=== PATIENT | female | born 1945 | race Caucasian/White ===

== ENCOUNTER 2018-06-09 08:27 | Inpatient (IN) | payer MEDICARE, BC ==
[~2018-06-09 08:27] MED LIST: EPINEPHrine 0.1 MG/ML SYG; NA BICARBONATE 8.4% 50 ML SYG
[2018-06-09] MEDS: SOD CHLORIDE 0.9% 1,000 ML IV (08:30)
[2018-06-09] MEDS ORDERED: FENTAnyl 50 MCG/ML VIAL ×2 (08:34→08:52)
[2018-06-09 08:40] LABS: ADD MAN DIFF? NO
[2018-06-09 08:41] LABS: WHITE BLOOD COUNT 16.7 10^3/ul (4.8-10.8)
[2018-06-09 08:41] LABS: BASOPHIL # 0.1 10^3/ul (0.0-0.1); BASOPHILS % 0.4 % (0.0-2.0); EOSINOPHILS # 0.3 10^3/ul (0.0-0.5); EOSINOPHILS % 1.7 % (0.0-7.0); HEMATOCRIT 38.3 % (37.0-47.0); HEMOGLOBIN 12.1 g/dl (12.0-16.0); LYMPHOCYTES # 3.3 10^3/ul (0.8-2.9); LYMPHOCYTES % 19.6 % (15.0-51.0); MEAN CORPUSCULAR HEMOGLOBIN 29.8 pg (29.0-33.0); MEAN CORPUSCULAR HGB CONC 31.6 g/dl (32.0-37.0); MEAN CORPUSCULAR VOLUME 94.3 fl (82.0-101.0); MEAN PLATELET VOLUME 8.4 fl (7.4-10.4); MONOCYTE # 0.9 10^3/ul (0.3-0.9); MONOCYTES % 5.3 % (0.0-11.0); NEUTROPHILS % 71.9 % (39.0-77.0); PLATELET COUNT 229 10^3/UL (140-415); RED BLOOD COUNT 4.06 10^6/ul (4.20-5.40); RED CELL DISTRIBUTION WIDTH 14.8 % (11.5-14.5)
[2018-06-09] MEDS ORDERED: NITROGLYCERIN (IC) 100 MCG/ML INJ (08:52)
[2018-06-09 08:57] LABS: ALANINE AMINOTRANSFERASE 69 IU/L (13-69); ALBUMIN 3.3 g/dl (3.3-4.9); ALKALINE PHOSPHATASE 65 IU/L (42-121); ANION GAP 11 (5-13); ASPARTATE AMINO TRANSFERASE 122 IU/L (15-46); BILIRUBIN,INDIRECT 0.5 mg/dl (0-1.1); BILIRUBIN,TOTAL 0.5 mg/dl (0.2-1.3); BLOOD UREA NITROGEN 22 mg/dl (7-20); CALCIUM 9.4 mg/dl (8.4-10.2); CARBON DIOXIDE 17 mmol/L (21-31); CHLORIDE 107 mmol/L (97-110); CREATINE KINASE 277 IU/L (23-200); CREATININE 0.87 mg/dl (0.44-1.00); GLUCOSE 148 mg/dl (70-220); SODIUM 135 mmol/L (135-144); TOTAL PROTEIN 6.3 g/dl (6.1-8.1)
[2018-06-09 09:10] LABS: B-TYPE NATRIURETIC PEPTIDE 1150 PG/ML (0-125); CK INDEX 6.9
[2018-06-09 09:20] LABS: TROPONIN-I 0.991 ng/ml (0.000-0.120)
[2018-06-09] MEDS ORDERED: ONDANSETRON 4 MG INJ (09:37)
[2018-06-09 09:45] LABS: INR 0.98; PROTIME 13.1 Sec (11.9-14.9)
[2018-06-09] MEDS ORDERED: FUROSEMIDE 40 MG INJ (09:48)
[2018-06-09 09:50] LABS: PARTIAL THROMBOPLASTIN TIME 123.7 Sec (23.0-35.0)
[2018-06-09] MEDS ORDERED: CANGRELOR TETRASODIUM/ NS 250 50 MG ×2 (10:04→11:18)
[2018-06-09] MEDS ORDERED: BIVALIRUDIN 250MG /NS 50 ML 50 ML IVPB (10:32)
[2018-06-09] MEDS ORDERED: EPTIFIBATIDE 20 ML (10:33)
[2018-06-09] MEDS ORDERED: LIDOCAINE 1% (MDV) 20 ML INJ (10:33)
[2018-06-09] MEDS ORDERED: NORepinephrine 8MG/250 ML (PMX 250 ML (10:33)
[2018-06-09] MEDS ORDERED: HEPARIN 1000 UNITS/NS (A-LINE) 0 ML (10:33)
[2018-06-09] MEDS ORDERED: EPTIFIBATIDE 100 ML IV (10:33)
[2018-06-09] MEDS ORDERED: HEPARIN 1000 UNITS/ML 10 ML INJ (10:35)
[2018-06-09 10:36] LABS: AADO2 Arterial 602.3 mmHg (7.0-24.0); Allen Test ACCEPTAB; Arterial Base Excess -11.9 mmol/L (-3.0-3); Arterial Blood Gas Oxygen Sat 87.4 mmHG (95.0-100.0); Arterial COHb 0.3 % (0.0-3.0); Arterial Fraction of Oxyhgb 86.9 % (93.0-99.0); Arterial HCO3 16.3 mmol/L (22.0-26.0); Arterial MetHb 0.3 % (0.0-1.5); Arterial pCO2 45.5 mmhg (35-45); MODE MASK - NRB; Site A-Line
[2018-06-09] MEDS ORDERED: LORAZEPAM 2 MG INJ (10:58)
[2018-06-09] MEDS ORDERED: SOD CHLORIDE 0.9% 1,000 ML IV (11:03)
[2018-06-09] MEDS ORDERED: ZOLPIDEM 5 MG TAB PO (11:30)
[2018-06-09] MEDS ORDERED: DIAZEPAM 2 MG TAB PO (11:30)
[2018-06-09] MEDS ORDERED: FUROSEMIDE 20 MG INJ (11:34)
[2018-06-09] MEDS ORDERED: PROPOFOL 100 ML (11:48)
[2018-06-09] MEDS ORDERED: MIDAZOLAM 1 MG/ML 2 ML INJ (11:52)
[2018-06-09] MEDS ORDERED: PROPOFOL 100 ML IV ×2 (12:00→12:30)
[2018-06-09] MEDS: MIDAZOLAM (DRIP) 50 mg/50 mL 50 ML IV (12:17)
[2018-06-09] MEDS: FENTAnyl (DRIP) 1000 mcg/100mL 100 ML IV (12:17)
[2018-06-09] MEDS: FUROSEMIDE 20 MG INJ IV (12:19)
[2018-06-09 13:06] LABS: AADO2 Arterial 556.3 mmHg (7.0-24.0); Arterial Base Excess -8.3 mmol/L (-3.0-3); Arterial Blood Gas Oxygen Sat 97.1 mmHG (95.0-100.0); Arterial COHb 0.3 % (0.0-3.0); Arterial Fraction of Oxyhgb 96.7 % (93.0-99.0); Arterial HCO3 18.9 mmol/L (22.0-26.0); Arterial MetHb 0.1 % (0.0-1.5); Arterial pCO2 44.9 mmhg (35-45); MODE VENT - AC; Site A-Line
[2018-06-09] MEDS: PROPOFOL 100 ML IV (13:34)
[2018-06-09] MEDS: TICAGRELOR 90 MG TABLET PO (13:34)
[2018-06-09 13:51] LABS: ADD UMIC YES; UR ASCORBIC ACID NEGATIVE (NEGATIVE); UR BACTERIA FEW /HPF (NONE SEEN); UR BILIRUBIN (Dip) NEGATIVE (NEGATIVE); UR BLOOD (Dip) 3+ mg/dL (NEGATIVE); UR CLARITY SLIGHTLY CLOUDY (CLEAR); UR COLOR YELLOW (YELLOW); UR GLUCOSE (Dip) 1+ mg/dL (NEGATIVE); UR KETONES (Dip) NEGATIVE (NEGATIVE); UR LEUKOCYTE ESTERASE (Dip) NEGATIVE Leu/ul (NEGATIVE); UR NITRITE (Dip) NEGATIVE (NEGATIVE); UR RBC 2 /HPF (0-5); UR SPECIFIC GRAVITY (Dip) 1.031 (1.003-1.030); UR TOTAL PROTEIN (Dip) NEGATIVE (NEGATIVE); UR UROBILINOGEN (Dip) NEGATIVE (NEGATIVE); UR WBC 4 /HPF (0-5)
[2018-06-09] MEDS ORDERED: NORepinephrine 8MG/250 ML (PMX 250 ML IV (14:00)
[2018-06-09] MEDS ORDERED: METOPROLOL 5 MG INJ IV (15:00)
[2018-06-09] MEDS ORDERED: MAGNESIUM SULFATE 2 GM/50 ML 50 ML IVPB (15:00)
[2018-06-09] MEDS ORDERED: AMIODARONE 150MG/D5W BOLUS 0 ML (15:12)
[2018-06-09 15:30] LABS: ALANINE AMINOTRANSFERASE 263 IU/L (13-69); ALBUMIN 3.4 g/dl (3.3-4.9); ALBUMIN/GLOBULIN RATIO 1.03; ALKALINE PHOSPHATASE 86 IU/L (42-121); ANION GAP 8 (5-13); BILIRUBIN,INDIRECT 0.6 mg/dl (0-1.1); BILIRUBIN,TOTAL 0.6 mg/dl (0.2-1.3); BLOOD UREA NITROGEN 25 mg/dl (7-20); CALCIUM 8.7 mg/dl (8.4-10.2); CARBON DIOXIDE 22 mmol/L (21-31); CHLORIDE 104 mmol/L (97-110); CREATININE 1.01 mg/dl (0.44-1.00); GLUCOSE 159 mg/dl (70-220); MAGNESIUM 1.9 mg/dl (1.7-2.5); POTASSIUM 4.5 mmol/L (3.5-5.1); SODIUM 134 mmol/L (135-144); TOTAL PROTEIN 6.7 g/dl (6.1-8.1)
[2018-06-09] MEDS ORDERED: AMIODARONE 900 MG in DEXTROSE 5% 482 ML IV (15:30)
[2018-06-09] MEDS ORDERED: EPINEPHrine 4 MG in SOD CHLORIDE 0.9% 246 ML IV (15:30)
[2018-06-09 15:40] LABS: ASPARTATE AMINO TRANSFERASE 1082 IU/L (15-46)
[2018-06-09 16:46] LABS: CK-MB > 800.00 ng/ml (0.0-2.4)
[2018-06-09 16:52] LABS: CK INDEX 6.4; CREATINE KINASE 12581 IU/L (23-200)
[2018-06-09] MEDS ORDERED: TICAGRELOR 90 MG TABLET PO (21:00)
[2018-06-09] MEDS ORDERED: ATORVASTATIN 80 MG TAB PO (21:00)
[2018-06-10] MEDS ORDERED: ASPIRIN (EC) 81 MG TAB PO (09:00)
== END 2018-06-09 15:45 | disposition expired | DRG 246 ==
LOC: E/R 08:27 → CCL 08:35 → SDS 08:35 → ICU 10:58 → CCL 19:35 → ICU 10:55
PROC: 027034Z Dilation of Coronary Artery, One Artery with Drug-eluting Intraluminal Device, Percutaneous Approach (ICD-10-PCS; principal; 2018-06-09 08:00)
PROC: 4A023N7 Measurement of Cardiac Sampling and Pressure, Left Heart, Percutaneous Approach (ICD-10-PCS; 2018-06-09 08:00)
PROC: B211YZZ Fluoroscopy of Multiple Coronary Arteries using Other Contrast (ICD-10-PCS; 2018-06-09 08:00)
PROC: B215YZZ Fluoroscopy of Left Heart using Other Contrast (ICD-10-PCS; 2018-06-09 08:00)
PROC: 0BH18EZ Insertion of Endotracheal Airway into Trachea, Via Natural or Artificial Opening Endoscopic (ICD-10-PCS; 2018-06-09 08:38)
PROC: 5A1935Z Respiratory Ventilation, Less than 24 Consecutive Hours (ICD-10-PCS; 2018-06-09 08:38)
PROC: 5A12012 Performance of Cardiac Output, Single, Manual (ICD-10-PCS; 2018-06-09 08:38)
PROC: 5A2204Z Restoration of Cardiac Rhythm, Single (ICD-10-PCS; 2018-06-09 08:38)
DX: I21.19 ST elevation (STEMI) myocardial infarction involving other coronary artery of inferior wall (principal); J96.01 Acute respiratory failure with hypoxia; R65.21 Severe sepsis with septic shock; A41.9 Sepsis, unspecified organism; I47.1 Supraventricular tachycardia; I25.10 Atherosclerotic heart disease of native coronary artery without angina pectoris; I10 Essential (primary) hypertension; R57.0 Cardiogenic shock; I21.21 ST elevation (STEMI) myocardial infarction involving left circumflex coronary artery; E87.70 Fluid overload, unspecified; I49.01 Ventricular fibrillation; I46.9 Cardiac arrest, cause unspecified; F41.9 Anxiety disorder, unspecified
CPT/HCPCS: 31500; 36600; 71045; 80053; 81001; 82550; 82553; 82803; 83735; 83880; 84484; 85025; 85610; 85730; 87081; 87086; 92950; 93005; 93458